=== PATIENT | female | born 1965 | race Caucasian/White ===

== ENCOUNTER 2017-08-14 09:49 | Day surgery (SDC) | payer BC ==
[2017-08-07 14:34] VITALS: BMI 37.8
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
[2017-08-14] MEDS ORDERED: PROPOFOL 20 ML ONE ×2 (13:28→13:58)
[2017-08-14] MEDS ORDERED: MIDAZOLAM HCL 2 MG/2 ML SINGLE DOSE VIAL ONE (13:28)
[2017-08-14] MEDS ORDERED: KETOROLAC TROMETHAMINE 30 MG/1 ML VIAL ONE (13:41)
[2017-08-14] MEDS ORDERED: ONDANSETRON 4 MG/2 ML VIAL ONE (13:41)
[2017-08-14] MEDS ORDERED: DEXAMETHASONE SOD PHOSPHATE 4 MG/1 ML VIAL ONE (13:41)
[2017-08-14] MEDS ORDERED: ONDANSETRON 4 MG/2 ML VIAL IVPUSH PRN ×3 (14:25→14:43)
[2017-08-14] MEDS ORDERED: oxyCODONE HCL 5 MG TABLET PO PRN ×3 (14:25→14:43)
[2017-08-14] MEDS ORDERED: LACTATED RINGERS SOLUTION 1,000 ML IV SCH (14:30)
[2017-08-14] MEDS ORDERED: DEXTROSE 5%-0.45% SALINE 1,000 ML IV SCH (14:45)
[2017-08-14] MEDS ORDERED: KETOROLAC TROMETHAMINE 30 MG/1 ML VIAL IVPUSH ONE (15:40)
[2017-08-14 16:39] VITALS: TEMP 98.7
[2017-08-14 16:42] VITALS: BP 110/60; PULSE 52
--- NOTE | 2017-08-16 10:03 | OP ---
DATE OF OPERATION: 08/14/2017 PREOPERATIVE DIAGNOSIS: Left breast phyllodes tumor. POSTOPERATIVE DIAGNOSIS: Left breast phyllodes tumor. PROCEDURE: Left breast partial mastectomy with mammographic localization. ANESTHESIA: IV sedation with local. ATTENDING SURGEON: Kyara Card MD UPSETTING MACHINE OPERATOR: MILDRED Domínguez ESTIMATED BLOOD LOSS: Minimal. COMPLICATIONS: None. DESCRIPTION OF PROCEDURE: Patient was made aware of the risks and benefits of the procedure and consented. She was placed in a supine position after going to the radiology suite where a needle and wire were placed next to the index lesion. After IV sedation was administered, the operative site was prepped and draped in the usual sterile fashion. Local anesthesia was provided by a 1:1 ratio of 0.25% bupivacaine and 1% lidocaine without epinephrine. A periareolar incision was then made. Using electrocautery, thick skin flaps were made. Needle was withdrawn to the puncture site and the wire through the wound. Tissues around the wire were then sharply excised and submitted with a short suture superior, long suture lateral. Specimen radiograph confirmed the presence of the index lesion and the clip. The wound was copiously irrigated with normal saline. Hemostasis maintained by electrocautery. With interrogation of the wound, we found nothing else suspicious. The wound was then closed with deep 3-0 Vicryl, followed by a running subcuticular 4-0 Monocryl. Steri-Strips, sterile dressing, and a compression bra were then applied, and the patient, having tolerated the procedure well, was transferred to the recovery room in excellent condition. KYARA CARD M.D. NICOLE/[id number]
--- NOTE | 2017-08-17 16:28 | PATH ---
Surgical Pathology Report Patient Name: LOKESH SANDY [facility]. Rec. #: [id number] /Age/Gender: 1965 (Age: 52) / F Account: [id number] Location: [facility] Taken: 08/14/2017 Received: 08/14/2017 Reported: 08/17/2017 Physicians: Shikha Card M.D. 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 PRIOR BIOPSY SITE CHANGES ARE PRESENT. Electronically Signed Gretchen Livingston M.D. Gross Description Received in formalin, labeled "left breast wide excision," is a 3.0 x 2.8 x 1.8 cm. french-yellow, irregular, portion of fibroadipose tissue with a needle localization wire present. There is a short suture marking the superior aspect and a long suture marking the lateral aspect, per the surgeon. There is no skin present. The specimen is inked as follows: superior and lateral blue; inferior green; medial yellow; anterior red; deep black. The specimen is serially sectioned from superior to inferior. Sectioning reveals a 0.8 x 0.6 x 0.6 cm french, fibrous mass. The mass is 0.2 cm from the medial margin, 0.5 cm from the lateral margin and 0.9 cm from the deep margin. The remaining margins appear widely clear of the mass. Health Equipment Servicer sections are submitted in 4 cassettes as follows: 1-2-one full-face section of mass each (each with anterior, deep, medial and lateral margins); 3-superior margin; 4-inferior margin. Time to formalin fixation: 2 minutes Total formalin fixation time: Approximately 28 hours. /08/15/2017 saudi08/15/2017
== END 2017-08-14 15:45 | disposition home or self-care (01) ==
LOC: FASU 09:49
PROVIDERS: ATTEND Surgery Surgical Oncology
PROC: 0HBU0ZZ Excision of Left Breast, Open Approach (ICD-10-PCS; principal; 2017-08-14 13:57)
DX: D24.2 Benign neoplasm of left breast (principal); D50.9 Iron deficiency anemia, unspecified; K74.5 Biliary cirrhosis, unspecified; F39 Unspecified mood [affective] disorder; M19.90 Unspecified osteoarthritis, unspecified site; Z98.84 Bariatric surgery status; Z97.5 Presence of (intrauterine) contraceptive device
CPT/HCPCS: 19281; 84703; 88307-TC; 94760

== ENCOUNTER 2021-07-26 07:12 | Day surgery (SDC) | payer BC, OTHER ==
[2021-07-26] MEDS ORDERED: IRON SUCROSE INJECTION 200 MG in SODIUM CHLORIDE 100 ML IVPB ONE (10:00)
[2021-07-26 15:18] VITALS: TEMP 97.7
[2021-07-26 15:52] VITALS: BP 106/65; PULSE 63
== END 2021-07-26 16:03 | disposition home or self-care (01) ==
LOC: JONCNONCHE 07:12
PROVIDERS: ATTEND Internal Medicine Hematology & Oncology
PROC: 3E033GC Introduction of Other Therapeutic Substance into Peripheral Vein, Percutaneous Approach (ICD-10-PCS; principal; 2021-07-26)
DX: D50.9 Iron deficiency anemia, unspecified (principal)
CPT/HCPCS: 96365; J1756

== ENCOUNTER 2021-08-02 07:29 | Day surgery (SDC) | payer BC, OTHER ==
[2021-08-02] MEDS ORDERED: IRON SUCROSE INJECTION 200 MG in SODIUM CHLORIDE 100 ML IVPB ONE (10:00)
[2021-08-02 16:28] VITALS: TEMP 97.7
[2021-08-02 16:33] VITALS: BP 98/45; PULSE 55
== END 2021-08-02 16:25 | disposition home or self-care (01) ==
LOC: JONCNONCHE 07:29
PROVIDERS: ATTEND Internal Medicine Hematology & Oncology
PROC: 3E033GC Introduction of Other Therapeutic Substance into Peripheral Vein, Percutaneous Approach (ICD-10-PCS; principal; 2021-08-02)
DX: D50.9 Iron deficiency anemia, unspecified (principal)
CPT/HCPCS: 96365; J1756

== ENCOUNTER → 2021-08-09 | Day surgery (SDC) | payer BC, OTHER ==
[~2021-08-09] MED LIST: IRON SUCROSE INJECTION 200 MG in SODIUM CHLORIDE 100 ML IVPB ONE
[2021-08-09 15:14] VITALS: TEMP 98.1
[2021-08-09 15:52] VITALS: BP 106/47; PULSE 68
== END | disposition home or self-care (01) ==
LOC: JONCNONCHE 07:18
PROVIDERS: ATTEND Internal Medicine Hematology & Oncology
PROC: 3E033GC Introduction of Other Therapeutic Substance into Peripheral Vein, Percutaneous Approach (ICD-10-PCS; principal; 2021-08-09)
DX: E61.1 Iron deficiency (principal); E53.8 Deficiency of other specified B group vitamins; Z98.84 Bariatric surgery status
CPT/HCPCS: 96365; J1756

== ENCOUNTER 2021-08-16 06:48 | Day surgery (SDC) | payer BC, OTHER ==
[2021-08-16] MEDS ORDERED: IRON SUCROSE INJECTION 200 MG in SODIUM CHLORIDE 100 ML IVPB ONE (10:00)
[2021-08-16 16:15] VITALS: BP 94/49; PULSE 58; TEMP 98.3
== END 2021-08-16 15:10 | disposition home or self-care (01) ==
LOC: JONCNONCHE 06:48
PROVIDERS: ATTEND Internal Medicine Hematology & Oncology
PROC: 3E033GC Introduction of Other Therapeutic Substance into Peripheral Vein, Percutaneous Approach (ICD-10-PCS; principal; 2021-08-16)
DX: D50.9 Iron deficiency anemia, unspecified (principal)
CPT/HCPCS: 96365; J1756

== ENCOUNTER 2023-05-09 15:52 | Day surgery (SDC) | payer BC, OTHER ==
[~2023-05-09 15:52] MED LIST changes: +IRON SUCROSE COMPLEX 200 MG in SODIUM CHLORIDE 100 ML IVPB ONE; -IRON SUCROSE INJECTION 200 MG in SODIUM CHLORIDE 100 ML IVPB ONE
[2023-05-09] MEDS ORDERED: PORTA CATH FLUSH 10 ML IVPUSH PRN (18:43)
[2023-05-09 18:44] VITALS: TEMP 97.7
[2023-05-09 18:49] VITALS: BP 105/51; PULSE 66; RESP 20
== END 2023-05-09 17:10 | disposition home or self-care (01) ==
LOC: JONCCHEMO 15:52 → J7W 15:55 → JONCCHEMO 17:10
PROVIDERS: ATTEND Internal Medicine Hematology & Oncology
PROC: 3E033GC Introduction of Other Therapeutic Substance into Peripheral Vein, Percutaneous Approach (ICD-10-PCS; principal; 2023-05-09)
DX: D50.9 Iron deficiency anemia, unspecified (principal)
CPT/HCPCS: 96365

== ENCOUNTER 2023-05-16 15:51 | Day surgery (SDC) | payer BC, OTHER ==
[2023-05-16 17:58] VITALS: RESP 18; TEMP 97.5
[2023-05-16 18:01] VITALS: BP 123/61; PULSE 70
== END 2023-05-16 17:00 | disposition home or self-care (01) ==
LOC: JONCNONCHE 15:51 → J7W 15:51 → JONCNONCHE 17:00
PROVIDERS: ATTEND Internal Medicine Hematology & Oncology
PROC: 3E033GC Introduction of Other Therapeutic Substance into Peripheral Vein, Percutaneous Approach (ICD-10-PCS; principal; 2023-05-16)
DX: D50.9 Iron deficiency anemia, unspecified (principal)
CPT/HCPCS: 96365

== ENCOUNTER 2023-05-23 15:45 | Day surgery (SDC) | payer BC, OTHER ==
[2023-05-23 17:49] VITALS: BP 119/62; PULSE 71; RESP 18; TEMP 97.8
== END 2023-05-23 17:00 | disposition home or self-care (01) ==
LOC: J7W 15:45 → JONCNONCHE 15:45
PROVIDERS: ATTEND Internal Medicine Hematology & Oncology
PROC: 3E033GC Introduction of Other Therapeutic Substance into Peripheral Vein, Percutaneous Approach (ICD-10-PCS; principal; 2023-05-23)
DX: D50.9 Iron deficiency anemia, unspecified (principal)
CPT/HCPCS: 96365

== ENCOUNTER 2023-05-30 16:01 | Day surgery (SDC) | payer BC, OTHER ==
[~2023-05-30 16:01] MED LIST changes: -IRON SUCROSE COMPLEX 200 MG in SODIUM CHLORIDE 100 ML IVPB ONE; +IRON SUCROSE INJECTION 200 MG in SODIUM CHLORIDE 100 ML IVPB ONE
[2023-05-30 17:11] VITALS: TEMP 98.3
[2023-05-30 17:13] VITALS: BP 122/62; PULSE 66; RESP 18
== END 2023-05-30 17:15 | disposition home or self-care (01) ==
LOC: J7W 16:01 → JONCNONCHE 16:01
PROVIDERS: ATTEND Internal Medicine Hematology & Oncology
PROC: 3E033GC Introduction of Other Therapeutic Substance into Peripheral Vein, Percutaneous Approach (ICD-10-PCS; principal; 2023-05-30)
DX: E61.1 Iron deficiency (principal)
CPT/HCPCS: 96365; J1756

== ENCOUNTER 2023-07-24 16:20 | Day surgery (SDC) | payer BC, OTHER ==
[2023-07-24] MEDS: IRON SUCROSE INJECTION 200 MG in SODIUM CHLORIDE 100 ML IVPB ONE (16:42)
[2023-07-24 18:54] VITALS: PULSE 71; RESP 18; TEMP 97.6
[2023-07-24 18:55] VITALS: BP 105/56
== END 2023-07-24 17:45 | disposition home or self-care (01) ==
LOC: JONCNONCHE 16:20 → J7W 16:20 → JONCNONCHE 17:45
PROVIDERS: ATTEND Internal Medicine Hematology & Oncology
PROC: 3E033GC Introduction of Other Therapeutic Substance into Peripheral Vein, Percutaneous Approach (ICD-10-PCS; principal; 2023-07-24)
DX: D50.9 Iron deficiency anemia, unspecified (principal)
CPT/HCPCS: 96365; J1756

== ENCOUNTER 2023-07-31 14:06 | Day surgery (SDC) | payer BC, OTHER ==
[2023-07-31] MEDS: IRON SUCROSE INJECTION 200 MG in SODIUM CHLORIDE 100 ML IVPB ONE (14:06)
[2023-07-31 14:41] VITALS: RESP 20
[2023-07-31 16:45] VITALS: BP 110/50; PULSE 74; TEMP 98
== END 2023-07-31 14:45 | disposition home or self-care (01) ==
LOC: JONCNONCHE 14:06 → J7W 14:12 → JONCNONCHE 14:45
PROVIDERS: ATTEND Internal Medicine Hematology & Oncology
PROC: 3E033GC Introduction of Other Therapeutic Substance into Peripheral Vein, Percutaneous Approach (ICD-10-PCS; principal; 2023-07-31)
DX: D50.9 Iron deficiency anemia, unspecified (principal)
CPT/HCPCS: 96365; J1756

== ENCOUNTER 2023-08-07 16:10 | Day surgery (SDC) | payer BC, OTHER ==
[2023-08-07] MEDS: IRON SUCROSE INJECTION 200 MG in SODIUM CHLORIDE 100 ML IVPB ONE (16:16)
[2023-08-07 16:24] VITALS: RESP 18
[2023-08-07 16:26] VITALS: TEMP 98.3
[2023-08-07 17:56] VITALS: BP 103/47; PULSE 65
== END 2023-08-07 17:56 | disposition home or self-care (01) ==
LOC: J7W 16:10 → JONCNONCHE 16:10
PROVIDERS: ATTEND Internal Medicine Hematology & Oncology
PROC: 3E033GC Introduction of Other Therapeutic Substance into Peripheral Vein, Percutaneous Approach (ICD-10-PCS; principal; 2023-08-07)
DX: D50.9 Iron deficiency anemia, unspecified (principal)
CPT/HCPCS: 96365; J1756

== ENCOUNTER 2023-08-14 15:44 | Day surgery (SDC) | payer BC, OTHER ==
[2023-08-14] MEDS: IRON SUCROSE INJECTION 200 MG in SODIUM CHLORIDE 100 ML IVPB ONE (16:01)
[2023-08-14 19:16] VITALS: BP 110/59; PULSE 68; RESP 18; TEMP 97.8
== END 2023-08-14 17:10 | disposition home or self-care (01) ==
LOC: JONCNONCHE 15:44 → J7W 15:45 → JONCNONCHE 17:10
PROVIDERS: ATTEND Internal Medicine Hematology & Oncology
PROC: 3E033GC Introduction of Other Therapeutic Substance into Peripheral Vein, Percutaneous Approach (ICD-10-PCS; principal; 2023-08-14)
DX: D50.9 Iron deficiency anemia, unspecified (principal)
CPT/HCPCS: 96365; J1756